=== PATIENT | female | born 1935 | race Caucasian/White ===

== ENCOUNTER 2020-01-16 13:30 | Outpatient (CLI) | payer MEDICARE, OTHER, SELFPAY ==
[2020-01-16 13:58] LABS: Basophils Absolute Auto 0.1 K/mm3 (0.0-0.1); Basophils Percent Auto 0.7 % (0.2-1.2); Eosinophils Absolute Auto 0.2 K/mm3 (0-0.3); Eosinophils Percent Auto 2.4 % (0-4.4); Hemoglobin 10.6 g/dL (12.0-15.0); Immature Granulocyte Absolute 0.03 K/mm3 (0.00-0.031); Immature Granulocyte Percent A 0.3 % (0-0.5); Lymphocytes Absolute Auto 0.93 K/mm3 (0.9-3.2); Lymphocytes Percent Auto 10.8 % (18.3-44.2); Mean Corpuscular HGB Conc 30.3 g/dl (32-36); Mean Corpuscular Hemoglobin 32.6 pg (26-34); Mean Corpuscular Volume 107.7 fl (80-100); Monocytes Absolute Auto 0.9 K/mm3 (0.1-0.6); Monocytes Percent Auto 10.8 % (2.6-8.5); Neutrophils Absolute Auto 6.5 K/mm3 (1.3-6.7); Platelet Count Result 243 k/mm3 (150-375); Red Blood Count 3.25 M/mm3 (4.2-5.4); Red Cell Distribution Width 12.9 % (11.5-14.5); White Blood Count 8.6 K/mm3 (4.5-10.0)
[2020-01-16 14:02] LABS: Blood Urea Nitrogen 16 mg/dL (8-26); Carbon Dioxide 31 mmol/L (22-30); Chloride 101 mmol/L (98-109); Estimated Glomerular Filt Rate 39; Glucose 130 mg/dL (70-105); Potassium 3.9 mmol/L (3.5-4.9); Sodium 144 mmol/L (138-146)
[2020-01-16 17:43] LABS: Iron 159 ug/dL (37-170)
[2020-01-16 17:52] LABS: Percent Iron Saturation 54 % (20-50)
[2020-01-16 18:52] LABS: Folic Acid > 20.0 ng/mL (2.76->20)
== END 2020-01-16 13:31 | disposition home or self-care (01) ==
PROVIDERS: PCP Family Medicine; Visit Provider Internal Medicine Hematology & Oncology
DX: D50.9 Iron deficiency anemia, unspecified (principal)
CPT/HCPCS: 36415; 80048; 82607; 82728; 82746; 83540; 83550; 85025

== ENCOUNTER 2020-03-26 10:34 | Observation (INO) | payer MEDICARE, OTHER, SELFPAY ==
[2020-03-26] VITALS (7 sets, daily range): BP systolic 120–174; BP diastolic 49–105; PULSE 82–88; RESP 15–22; TEMP 36.3; O2SAT 95–100; BMI 20.7
--- NOTE | ~2020-03-26 | XR_ITS ---
EXAMINATION: XR chest 1V portable DATE: 03/26/2020 11:20 INDICATION: Cough. TECHNIQUE: A single frontal view of the chest was obtained. COMPARISON: Chest single view 01/11/2018, CT abdomen and pelvis 10/12/2017, chest CT 12/25/2012 FINDINGS: The patient is rotated to her right. There are lucencies in the lungs, consistent with emph ysema. Calcified right lung nodules and calcified right hilar and mediastinal lymph nodes are consist ent with old granulomatous disease. No pleural effusion or pneumothorax. The heart size is normal. IMPRESSION: 1. Emphysema. Reviewed, dictated and finalized at location B. IMPRESSION: 1. Emphysema.
--- NOTE | 2020-03-26 11:10 | PC.NURSE ---
clarence tech unable to draw labs x 2 tech x 2 attempts
--- NOTE | 2020-03-26 11:12 | PC.NURSE ---
portable xray at bedside.
[2020-03-26 11:35] LABS: Basophils Absolute Auto 0.1 K/mm3 (0.0-0.1); Basophils Percent Auto 0.7 % (0.2-1.2); Eosinophils Absolute Auto 0.2 K/mm3 (0-0.3); Eosinophils Percent Auto 2.6 % (0-4.4); Hematocrit 38.1 % (37.0-47.0); Hemoglobin 11.7 g/dL (12.0-15.0); Immature Granulocyte Absolute 0.01 K/mm3 (0.00-0.031); Immature Granulocyte Percent A 0.1 % (0-0.5); Lymphocytes Absolute Auto 0.89 K/mm3 (0.9-3.2); Lymphocytes Percent Auto 11.7 % (18.3-44.2); Mean Corpuscular HGB Conc 30.7 g/dl (32-36); Mean Corpuscular Hemoglobin 31.8 pg (26-34); Mean Corpuscular Volume 103.5 fl (80-100); Monocytes Absolute Auto 0.6 K/mm3 (0.1-0.6); Neutrophils Absolute Auto 5.8 K/mm3 (1.3-6.7); Neutrophils Percent Auto 76.9 % (45.5-73.1); Platelet Count Result 241 k/mm3 (150-375); Red Blood Count 3.68 M/mm3 (4.2-5.4); Red Cell Distribution Width 12.9 % (11.5-14.5); White Blood Count 7.6 K/mm3 (4.5-10.0)
[2020-03-26 11:43] LABS: INR 0.9; Partial Thromboplastin Time 27.5 SECONDS (22.3-36.8)
[2020-03-26 11:46] LABS: Alanine Aminotransferase 13 U/L (4-35); Albumin Level 4.7 g/dL (3.5-5.1); Alkaline Phosphatase 93 U/L (38-126); Anion Gap 7 mmol/L (8-16); Aspartate Amino Transferase 31 U/L (14-36); Bilirubin,Total 0.2 mg/dL (0.2-1.3); Blood Urea Nitrogen 22 mg/dL (7-17); Calcium 10.1 mg/dL (8.4-10.2); Carbon Dioxide 35 mmol/L (22-30); Chloride 100 mmol/L (98-107); Estimated CRCL calculation 24 ml/min; Estimated Glomerular Filt Rate 47; Glucose 193 mg/dL (65-105); Potassium 4.5 mmol/L (3.4-5.0); Sodium 142 mmol/L (137-145)
--- NOTE | 2020-03-26 12:29 | ED.GENADULT ---
HPI - General Adult General Chief complaint: Unspecified Stated complaint: UNABLE TO SWALLOW Time Seen by Provider: 03/26/20 10:36 Source: RN notes reviewed History of Present Illness HPI narrative: Patient presents emergency department via EMS for dysphasia. History is per the patient as well as discussion with Dr. Almaraz. The patient has been having difficulty eating solid foods. She states they will go down and immediately come back up. States this is progressively been worse over the past several weeks. States she is able to tolerate liquids. She denies any fevers or chills chest pain shortness of breath abdominal pain nausea vomiting or any other symptoms. Per Dr. Rufina Miner patient has been having episodes of choking when she eats and feels that she needs further evaluation Related Data Home Medications Medication Instructions Recorded Confirmed Lactobacillus acidophilus 2,000 mmu cells PO BID 07/02/19 acetaminophen 650 mg 650 mg PO Q8H 07/02/19 tablet,extended release carboxymethylcellulose sodium 1 drop EACH EYE QID 07/02/19 clopidogrel 75 mg tablet 75 mg PO DAILY 07/02/19 ferrous sulfate 325 mg (65 mg 325 mg PO BID 07/02/19 iron) tablet lidocaine 4 % topical patch 1 patch TOPICAL Q24H PRN 07/02/19 lidocaine 5 % topical patch 1 patch TOPICAL DAILY 07/02/19 vexcoslx-mce-ttqez ac 400 tablet PO 07/02/19 mcg-calcium carb 500 mg-vit K1 20 mcg tablet Allergies Allergy/AdvReac Type Severity Reaction Status Date / Time neomycin Allergy Mild ITCHING/ Verified 03/26/20 10:44 SWELLING duloxetine Allergy Unknown shortness Verified 03/26/20 10:44 of breath Review of Systems Review of Systems: Narrative: Gen.: Denies fevers or chills ENT: Denies congestion Respiratory: Denies shortness of breath or cough CV: Denies chest pain or palpitations GI: Denies abdominal pain nausea, emesis or diarrhea reports dysphasia Musculoskeletal: Denies back pain or muscle pain Neuro: Denies numbness, tingling, weakness or focal weakness Skin: Denies rash Except as documented, all other systems reviewed and negative PMF Past Medical History Medical History AAA (abdominal aortic aneurysm) Abnormality of gait Arthritis BP (high blood pressure) CAD (coronary artery disease) Chronic respiratory failure Chronic ulcer of ankle, right, limited to breakdown of skin COPD (chronic obstructive pulmonary disease) Debility JONATHAN (generalized anxiety disorder) Gastric ulcer with hemorrhage GERD with esophagitis Hx of transfusion Hypothyroidism (acquired) Oxygen dependent PAD (peripheral artery disease) Uses walker Surgical History Surgical History (Updated 07/02/19 @ 21:03 by Rufina Miner MD) S/P insertion of iliac artery stent Family History Family History (Updated 11/19/16 @ 23:56 by DOCTOR UNKNOWN) Father Family history of transient ischemic attacks, Onset Age: 74 Patient's father is Mother Acute myocardial infarction, Onset Age: 72 Patient's mother is Social History Social History Smoking status: Light tobacco smoker Second hand tobacco smoke exposure: No Smoking end date: 08/15/16 Alcohol intake: never Substance use: never Substance use type: does not use Gender identity (if verbalized by the patient): Female Exam Narrative: Exam Narrative: APPEARANCE: No acute distress, nontoxic, resting in bed EYES: EOMI HEENT: Normocephalic, atraumatic, OMM RESPIRATORY: No respiratory distress Clear to auscultation bilaterally with no rhonchi wheezing or rales. CARDIOVASCULAR: Regular rate and rhythm without murmurs rubs or gallops. ABDOMINAL: Soft, nontender, nondistended, no rebound or guarding MUSCULOSKELETAl: Moves all extremities. NEURO: Awake and alert. Following commands, speech normal, no focal deficits SK
--- NOTE | 2020-03-26 13:13 | PC.NURSE ---
Cuauhtemoc Davila updated to pt being admitted at this [facility].
--- NOTE | 2020-03-26 14:43 | ADMGEN ---
This patient, Eloina Green, was admitted to 3 Med Surg Room 323-01 @ 1443. Patient/family oriented to hospital policies and general routines including ID bracelet, bed and alarms, visiting hours, pain management, procedures, bathroom and other care routines, personal items, smoking policy, room service/diet, and visiting hours. Valuables list has been completed. Information on how to activate the Rapid Response Team has been discussed. Patient/Family are encouraged to report perceived risks to care and to ask questions if they do not understand what they are told or what they should do.
[2020-03-26] MEDS: SODIUM CHLORIDE 0.9% IV 1,000 ML 100 ML IV CONT (15:15)
--- NOTE | 2020-03-26 21:00 | PM.IMHP ---
H&P: HPI History of Present Illness Date/Time: 03/26/20 21:00 Chief complaint: Dysphagia. Narrative: Eloina Green is an 85-year-old female with history of gastric ulcer, GERD, diabetes, heart disease, dementia, and several other comorbidities who presented to the emergency department earlier today via EMS from [place] for evaluation of dysphagia. For quite some time she has had difficulties swallowing, mainly solid food, and she is cognizant about taking small bites and chewing for quite some time before swallowing. Her dysphagia has gotten worse over the past several weeks to the point where she is coughing and choking when eating and in fact she is not able to hold down any solids, and tends to regurgitate them shortly after swallowing. Apparently she has not had any problems with liquids, however. The only complaint she has at the time my evaluation is of having to urinate frequently as she is on IV fluids. She denies abdominal pain, epigastric pain, and current nausea. No shortness of breath or concerns for aspiration. Review of Systems Review of Systems: Narrative: Twelve systems were reviewed with pertinent positives and negatives as per HPI. She denies fever, chills, and sweats. No recent cold or flu symptoms. She denies cough and shortness of breath. No dysuria, hematuria, or urinary incontinence. Except as documented, all other systems were reviewed and are negative. [facility] Past Medical History Medical History (Updated 03/27/20 @ 02:05 by Ana Dumont PA-C) Acquired hypothyroidism Status post radioactive iodine ablation for hyperthyroidism. Anemia With history of blood transfusion. Aneurysm of infrarenal abdominal aorta Fusiform infrarenal a measuring 3.2 x 3.1 centimeters on imaging from September 2017. Arthritis Carotid artery disease Status post right carotid endarterectomy. Chronic obstructive pulmonary disease Chronic respiratory failure with hypoxia, on home oxygen therapy Coronary artery disease With history of stent in February 2005. Dementia Depression with anxiety Diastolic congestive heart failure Echocardiogram in December 2017 showed grade 1 diastolic dysfunction with ejection fraction of 65 to 70%. Essential hypertension Gastric ulcer with hemorrhage (~03/2019) Gastroesophageal reflux Hyperlipidemia Hyperthyroidism Status post radioactive iodine ablation. Moderate aortic stenosis On echocardiogram in December 2017. Peripheral arterial disease Rhabdomyolysis (~09/2018) Requiring hospitalization after a fall. Shingles Type 2 diabetes mellitus Diet controlled, with a hemoglobin A1c of 5.1% on 03/25/2019. Surgical History Surgical History (Updated 03/27/20 @ 01:54 by Ana Dumont PA-C) History of bilateral cataract extraction History of right-sided carotid endarterectomy (~02/2016) History of spinal surgery (~08/2004) Status post insertion of iliac artery stent Family History Family History Father Family history of transient ischemic attacks, Onset Age: 74 Patient's father is Mother Acute myocardial infarction, Onset Age: 72 Patient's mother is Social History Social History (Updated 03/27/20 @ 01:56 by Ana Dumont PA-C) Social History: The patient is and lives in [facility] at [place]. She has no children. She started smoking at the age of 16, about a pack per day, but in her later years she has only smoked diffuse cigarettes a day. She drinks alcohol rarely, and occasionally will have believes with her coffee. No illicit substance use. She ambulates with a walker. She is listed as a full code. Spiritual care concerns: No Meds Home Medications and Allergies Home Medications Medication Instructions Recorded Confirmed Type Lactobacillus acidophilus 2,000 mmu cells PO BID 07/02/19 03/26/20 History clopidogrel 75 mg tablet 75 mg PO DAILY
[2020-03-27] VITALS (9 sets, daily range): BP systolic 134–154; BP diastolic 45–65; PULSE 76–88; RESP 16–22; TEMP 36.4–37; O2SAT 95–100
--- NOTE | 2020-03-27 09:28 | WPDGICN ---
Assessment and Plan Assessment and plan (1) Dysphagia: Code(s): R13.10 - Dysphagia, unspecified Status: Acute Assessment and Plan: patient has difficulty swallowing solid foods. This appears to hang up in the mid chest. Plan is for EGD to assess more thoroughly. Patient is known to have acid reflux. She had a gastric ulcer 1 year ago that will be reassessed at time of endoscopy. Patient should be maintained on anti reflux measures proton pump inhibitor for the immediate future. Further recommendations after endoscopy. (2) Gastroesophageal reflux: Code(s): K21.9 - Gastro-esophageal reflux disease without esophagitis Status: Acute (3) Dementia: Code(s): F03.90 - Unspecified dementia without behavioral disturbance Status: Acute GI Consult Note Consult date/time: 03/27/20 09:28 HPI: Eloina Green is a 85 year old female seen in evaluation at the request of the hospitalist service. Patient has underlying history of dementia. Currently resident of [facility]. Recently had increasing difficulty swallowing for this reason I have been consulted. Patient states that solid food will catch in the mid substernal portion of the chest. Patient is known to my service for evaluation 1 year ago which time she had a gastric ulcer. Patient also has been treated for GE reflux disease. She has past medical history of congestive heart failure, hypertension, GE reflux, hyperlipidemia, hyperthyroidism, COPD. Review of Systems Review of Systems: All systems reviewed & are unremarkable except as noted in HPI and below PMFSH Past Medical History Medical History Acquired hypothyroidism Status post radioactive iodine ablation for hyperthyroidism. Anemia With history of blood transfusion. Aneurysm of infrarenal abdominal aorta Fusiform infrarenal a measuring 3.2 x 3.1 centimeters on imaging from September 2017. Arthritis Carotid artery disease Status post right carotid endarterectomy. Chronic obstructive pulmonary disease Chronic respiratory failure with hypoxia, on home oxygen therapy Coronary artery disease With history of stent in February 2005. Dementia Depression with anxiety Diastolic congestive heart failure Echocardiogram in December 2017 showed grade 1 diastolic dysfunction with ejection fraction of 65 to 70%. Essential hypertension Gastric ulcer with hemorrhage (~03/2019) Gastroesophageal reflux Hyperlipidemia Hyperthyroidism Status post radioactive iodine ablation. Moderate aortic stenosis On echocardiogram in December 2017. Peripheral arterial disease Rhabdomyolysis (~09/2018) Requiring hospitalization after a fall. Shingles Type 2 diabetes mellitus Diet controlled, with a hemoglobin A1c of 5.1% on 03/25/2019. Surgical History Surgical History History of bilateral cataract extraction History of right-sided carotid endarterectomy (~02/2016) History of spinal surgery (~08/2004) Status post insertion of iliac artery stent Family History Family History Father Family history of transient ischemic attacks, Onset Age: 74 Patient's father is Mother Acute myocardial infarction, Onset Age: 72 Patient's mother is Social History Social History Social History: The patient is and lives in memory care at [place]. She has no children. She started smoking at the age of 16, about a pack per day, but in her later years she has only smoked diffuse cigarettes a day. She drinks alcohol rarely, and occasionally will have believes with her coffee. No illicit substance use. She ambulates with a walker. She is listed as a full code. Spiritual care concerns: No Meds Home Medications and Allergies Home Medications Medi
--- NOTE | 2020-03-27 10:21 | PC.NURSE ---
pt leaving to go to gi lab at 1024
[2020-03-27 10:43] LABS: Glucose Point of Care 117 (65-105)
--- NOTE | 2020-03-27 10:44 | WPDANESEPPF ---
Anes - Initial Pre Proc Eval Procedure: Operation Date: 03/27/20 11:00 Proposed Procedures p Esophagogastroduodenoscopy - Haseeb Aragon MD Date/Time: 03/27/20 10:44 Surgeon: Hayden Villalta MD Pre Op Diagnosis: Dysphagia. Patient Data Age: 85 Gender: F Height: 5 ft 2 in Weight: 51.4 kg Last Vital Signs Temp 36.8 C 03/27/20 10:43 Pulse 87 03/27/20 10:43 Resp 22 H 03/27/20 10:43 BP 151/65 H 03/27/20 10:43 Pulse Ox 100 03/27/20 10:43 Allergies Allergy/AdvReac Type Severity Reaction Status Date / Time neomycin Allergy Mild ITCHING/ Verified 03/27/20 10:41 SWELLING duloxetine Allergy Unknown shortness Verified 03/27/20 10:41 of breath Home Medications Medication Instructions Recorded Confirmed Type Lactobacillus acidophilus 2,000 mmu cells PO BID 07/02/19 03/26/20 History clopidogrel 75 mg tablet 75 mg PO DAILY 07/02/19 03/26/20 History ferrous sulfate 325 mg (65 mg 325 mg PO BID 07/02/19 03/26/20 History iron) tablet lidocaine 5 % topical patch 1 patch TOPICAL DAILY 07/02/19 03/26/20 History xeyrdkxw-tgf-dqlpi ac 400 1 tablet PO DAILY 07/02/19 03/26/20 History mcg-calcium carb 500 mg-vit K1 20 mcg tablet diazepam 5 mg tablet 5 mg PO TID #90 tablet 10/09/19 03/26/20 Rx quetiapine 50 mg tablet,extended 100 mg PO QPM #180 tablet 10/09/19 03/26/20 Rx release 24 hr ascorbic acid (vitamin C) 1,000 mg 1 gm PO DAILY #90 tablet 11/08/19 03/26/20 Rx tablet celecoxib 200 mg capsule 200 mg PO DAILY #90 cap 11/08/19 03/26/20 Rx levothyroxine 88 mcg tablet 88 mcg PO DAILY #90 tablet 11/08/19 03/26/20 Rx amlodipine 5 mg tablet 5 mg PO DAILY #90 tablet 11/13/19 03/26/20 Rx meclizine 25 mg tablet 25 mg PO TID PRN #90 tablet 11/13/19 03/26/20 Rx memantine ER 28 mg-donepezil 10 mg 1 cap PO DAILY #90 each 11/13/19 03/26/20 Rx capsule sprinkle,ext.release 24 hr melatonin 10 mg capsule 10 mg PO .qhs #90 cap 11/16/19 03/26/20 Rx tramadol 50 mg tablet 50 mg PO Q6H PRN #120 tablet 12/26/19 03/26/20 Rx simvastatin 40 mg tablet 40 mg PO DAILY #90 tablet 01/15/20 03/26/20 Rx aspirin 81 mg tablet,delayed 81 mg PO DAILY #90 tablet 02/06/20 03/26/20 Rx release cetirizine 10 mg tablet 10 mg PO DAILY #90 tablet 02/06/20 03/26/20 Rx pantoprazole 40 mg tablet,delayed 40 mg PO QAM #90 tablet 02/07/20 03/26/20 Rx release calcium carbonate 500 mg (1,250 1 tablet PO DAILY #90 tablet 03/06/20 03/26/20 Rx mg)-vitamin D3 400 unit tablet azelastine 137 mcg INTRANASAL Q12H 03/26/20 03/26/20 History carboxymethylcellulose sodium 1 drp OPHTHALMIC (EYE) QID 03/26/20 03/26/20 History [Refresh Tears] fluticasone propionate 1 spray INTRANASAL BID 03/26/20 03/26/20 History prednisolone acetate 1 drp LEFTEYE BID 03/26/20 03/26/20 History Laboratory Tests 03/26/20 03/26/20 03/26/20 11:26 11:26 11:26 WBC 7.6 K/mm3 K/mm3 (4.5-10.0) RBC 3.68 M/mm3 L M/mm3 (4.2-5.4) Hgb 11.7 g/dL L g/dL (12.0-15.0) Hct 38.1 % % (37.0-47.0) MCV 103.5 fl H fl (80-100) MCH 31.8 pg pg (26-34) MCHC 30.7 g/dl L g/dl (32-36) RDW 12.9 % % (11.5-14.5) Plt Count 241 k/mm3 k/mm3 (150-375) MPV 9.0 fl fl (7.4-10.4) Immature Gran % (Auto) 0.1 % % (0-0.5) Neut % (Auto) 76.9 % H % (45.5-73.1) Lymph % (Auto) 11.7 % L % (18.3-44.2) [place] % (Auto) 8.0 % % (2.6-8.5) Eos % (Auto) 2.6 % % (0-4.4) Baso % (Auto) 0.7 % % (0.2-1.2) Lymph # (Auto) 0.89 K/mm3 L K/mm3 (0.9-3.2) [place] # (Auto) 0.6 K/mm3 K/mm3 (0.1-0.6) Eos # (Auto) 0.2 K/mm3 K/mm3 (0-0.3) Baso # (Auto) 0.1 K/mm3 K/mm3 (0.0-0.1) Abs Immat Gran (auto) 0.01 K/mm3 K/mm3 (0.00-0.031) Absolute Neuts (auto) 5.8 K/mm3 K/mm3 (1.3-6.7) Absolute Nucleated RBC 0.0 K/mm3 K/mm3 (0.0-0.012) Nucleated RBC % 0.0 % %
[2020-03-27] MEDS: LACTATED RINGERS 1,000 ML 150 ML IV CONT (10:46)
[2020-03-27] MEDS: BENZOCAINE (*SP) 60 ML SPRAY CAN (HURRICAINE) 1 SPRAY MUCOUS MEM (11:24)
[2020-03-27] MEDS: LEVOTHYROXINE SODIUM 88 MCG TABLET PO (12:59)
[2020-03-27] MEDS: amLODIPine BESYLATE 5 MG TABLET PO (13:01)
[2020-03-27] MEDS: DONEPEZIL HCL 10 MG TABLET PO (13:02)
[2020-03-27] MEDS: FERROUS SULFATE 324 MG TABLET PO (13:02)
[2020-03-27] MEDS: FLUTICASONE PROPIONATE 0.05% NA SPR 16 GM BTL (*BKC) 1 SPRAY NASAL (13:03)
[2020-03-27] MEDS: LORATADINE 10 MG TABLET PO (13:04)
[2020-03-27] MEDS: LIDOCAINE 5% PATCH 1 PATCH TOPICAL (13:04)
[2020-03-27] MEDS: PANTOPRAZOLE 40 MG TABLET PO (13:06)
[2020-03-27] MEDS: MEMANTINE HCL XR 28 MG CAP PO (13:09)
[2020-03-27] MEDS: SIMVASTATIN 20 MG TABLET 40 MG PO (13:09)
[2020-03-27] MEDS: diazePAM 5 MG TABLET PO (13:10)
[2020-03-27] MEDS: ACIDOPHILUS/BULGARICUS CHEWABLE TABLET 1 TABLET PO (13:11)
--- NOTE | 2020-03-27 16:03 | PC.NURSE ---
pt returned from gi lab, a/o x2,asking for her morning meds.francesca returned to pt from [facility].
--- NOTE | 2020-03-27 16:34 | P.DS_ITS ---
DS: Admitting Diagnosis Admitting Diagnosis Admitting Diagnosis: Dysphagia. DS: Discharge Diagnosis Discharge Diagnosis (1) Dysphagia: Code(s): R13.10 - Dysphagia, unspecified Status: Acute Assessment and Plan: * NPO after midnight for probable EGD in a.m. * EGD is NL (2) Mild dehydration: Code(s): E86.0 - Dehydration Status: Resolved Assessment and Plan: * She will receive IV fluid rehydration overnight. (3) Anemia: Code(s): D64.9 - Anemia, unspecified Status: Acute Assessment and Plan: * Hemoglobin and hematocrit are stable on review of previous labs. * Resume iron supplementation post EGD. (4) Essential hypertension: Code(s): I10 - Essential (primary) hypertension Status: Acute Assessment and Plan: * Continue antihypertensive monitor closely. (5) Gastroesophageal reflux: Code(s): K21.9 - Gastro-esophageal reflux disease without esophagitis Status: Acute Assessment and Plan: * Continue pantoprazole. (6) Chronic obstructive pulmonary disease: Code(s): J44.9 - Chronic obstructive pulmonary disease, unspecified Status: Acute Assessment and Plan: * No acute issues, she is at her baseline oxygen requirement. (7) Chronic respiratory failure with hypoxia, on home oxygen therapy: Code(s): J96.11 - Chronic respiratory failure with hypoxia; Z99.81 - Dependence on supplemental oxygen Status: Acute Assessment and Plan: * She is on her baseline oxygen requirement. (8) Dementia: Code(s): F03.90 - Unspecified dementia without behavioral disturbance Status: Acute Assessment and Plan: * Continue quetiapine, memantine, and diazepam. * Pt lives in a memory center. (9) Acquired hypothyroidism: Code(s): E03.9 - Hypothyroidism, unspecified Status: Acute Assessment and Plan: * Continue levothyroxine. (10) Peripheral arterial disease: Code(s): I73.9 - Peripheral vascular disease, unspecified Status: Acute Assessment and Plan: * Aspirin and clopidogrel on hold in anticipation of EGD. DS: Summary Time Spent with Patient Time attestation: Total time spent providing and/or coordinating discharge services:40 minutes on the day of discharge Exam Const: General: well developed HENMT: Head: normocephalic Eyes: General: appearance normal, both eyes and all related structures Pupils: Equal, round and reactive pupils present Neck: Neck: supple Chest: Chest palpation & inspection: normal inspection of the chest Resp: Effort & Inspection: normal respiratory effort Auscultation: clear to auscultation bilaterally Cardio: Jugular venous distension: no JVD Rhythm: regular rhythm Heart sounds: S1 normal heart sound present and S2 normal heart sound present GI:
--- NOTE | 2020-03-27 16:34 | PM.DS ---
DS: Admitting Diagnosis Admitting Diagnosis Admitting Diagnosis: Dysphagia. DS: Discharge Diagnosis Discharge Diagnosis (1) Dysphagia: Code(s): R13.10 - Dysphagia, unspecified Status: Acute Assessment and Plan: NPO after midnight for probable EGD in a.m. EGD is NL (2) Mild dehydration: Code(s): E86.0 - Dehydration Status: Resolved Assessment and Plan: She will receive IV fluid rehydration overnight. (3) Anemia: Code(s): D64.9 - Anemia, unspecified Status: Acute Assessment and Plan: Hemoglobin and hematocrit are stable on review of previous labs. Resume iron supplementation post EGD. (4) Essential hypertension: Code(s): I10 - Essential (primary) hypertension Status: Acute Assessment and Plan: Continue antihypertensive monitor closely. (5) Gastroesophageal reflux: Code(s): K21.9 - Gastro-esophageal reflux disease without esophagitis Status: Acute Assessment and Plan: Continue pantoprazole. (6) Chronic obstructive pulmonary disease: Code(s): J44.9 - Chronic obstructive pulmonary disease, unspecified Status: Acute Assessment and Plan: No acute issues, she is at her baseline oxygen requirement. (7) Chronic respiratory failure with hypoxia, on home oxygen therapy: Code(s): J96.11 - Chronic respiratory failure with hypoxia; Z99.81 - Dependence on supplemental oxygen Status: Acute Assessment and Plan: She is on her baseline oxygen requirement. (8) Dementia: Code(s): F03.90 - Unspecified dementia without behavioral disturbance Status: Acute Assessment and Plan: Continue quetiapine, memantine, and diazepam. Pt lives in a memory center. (9) Acquired hypothyroidism: Code(s): E03.9 - Hypothyroidism, unspecified Status: Acute Assessment and Plan: Continue levothyroxine. (10) Peripheral arterial disease: Code(s): I73.9 - Peripheral vascular disease, unspecified Status: Acute Assessment and Plan: Aspirin and clopidogrel on hold in anticipation of EGD. DS: Summary Time Spent with Patient Time attestation: Total time spent providing and/or coordinating discharge services:40 minutes on the day of discharge Exam Const: General: well developed HENMT: Head: normocephalic Eyes: General: appearance normal, both eyes and all related structures Pupils: Equal, round and reactive pupils present Neck: Neck: supple Chest: Chest palpation & inspection: normal inspection of the chest Resp: Effort & Inspection: normal respiratory effort Auscultation: clear to auscultation bilaterally Cardio: Jugular venous distension: no JVD Rhythm: regular rhythm Heart sounds: S1 normal heart sound present and S2 normal heart sound present GI: Inspection: normal to inspection GI Palp: No abdominal tenderness, Yes Soft to palpation and No Tenderness to palpation present (GI) Auscultation: normal bowel sounds : General: Yes no CVA tenderness Back/Spine/Pelvis: Back: no CVA tenderness Skin: General skin exam: normal color and dry skin Neuro: Cranial nerves: Yes CN's II-XII intact bilaterally and Yes Equal, round and reactive pupils present Cognition (Neuro): abnormal cognition (pleasantly confused ) Speech: normal speech Motor exam (neuro): 5/5 motor strength present throughout Extrem: Gener
== END 2020-03-27 18:15 ==
LOC: ANHED 12:31 → ANH3MEDSUR 15:26
PROVIDERS: Internal Medicine Gastroenterology; Admitting Provider Internal Medicine; Emergency Provider Emergency Medicine; PCP Family Medicine; Visit Provider Family Medicine
PROC: 0DJ08ZZ Inspection of Upper Intestinal Tract, Via Natural or Artificial Opening Endoscopic (ICD-10-PCS; CPT 43235; principal; 2020-03-27 11:00)
DX: R13.10 Dysphagia, unspecified (principal); D64.9 Anemia, unspecified; I11.0 Hypertensive heart disease with heart failure; I50.30 Unspecified diastolic (congestive) heart failure; K21.9 Gastro-esophageal reflux disease without esophagitis; E03.9 Hypothyroidism, unspecified; E11.9 Type 2 diabetes mellitus without complications; F03.90 Unspecified dementia, unspecified severity, without behavioral disturbance, psychotic disturbance, mood disturbance, and anxiety; I73.9 Peripheral vascular disease, unspecified; J44.9 Chronic obstructive pulmonary disease, unspecified; J96.11 Chronic respiratory failure with hypoxia; Z87.891 Personal history of nicotine dependence; Z99.81 Dependence on supplemental oxygen
CPT/HCPCS: 43450; 36415; 71045; 80053; 85025; 85610; 85730; 99285; A9270; G0378; J2704; J7030; J7120

== ENCOUNTER 2020-04-11 12:30 | Emergency (ER) | payer MEDICARE, OTHER, SELFPAY ==
[2020-04-11 12:36] VITALS: BP 121/52; PULSE 73; RESP 18; TEMP 36.2; O2SAT 97
--- NOTE | 2020-04-11 14:15 | PC.NURSE ---
Patient attempted to go outside, oxygen tank hit floor. Patient states take me outside I wanna smoke. Advised patient that is not an option with oxygen. Patient then states take me off my tank and just push me the fuck outside. Patient proceeded to push self outside in wheelchair and smoke a cigarette. supervisory historian notified.
--- NOTE | 2020-04-11 14:29 | ED.GENADULT ---
HPI - General Adult General Chief complaint: Unspecified Stated complaint: difficulty swallowing at mealtime Time Seen by Provider: 04/11/20 14:28 History of Present Illness HPI narrative: Difficulty swallowing solids for the past few weeks. Not every time she eats. She has not noticed this problem with any particular type of food. She felt that she had something stuck today, but that has since resolved. She was told by her PCP that she needed to come here to get her esophagus stretched . Related Data Home Medications Medication Instructions Recorded Confirmed Lactobacillus acidophilus 2,000 mmu cells PO BID 07/02/19 03/26/20 clopidogrel 75 mg tablet 75 mg PO DAILY 07/02/19 03/26/20 lidocaine 5 % topical patch 1 patch TOPICAL DAILY 07/02/19 03/26/20 fuzdzltd-ipd-[id number] ac 400 1 tablet PO DAILY 07/02/19 03/26/20 mcg-calcium carb 500 mg-vit K1 20 mcg tablet Refresh Tears 1 drp OPHTHALMIC (EYE) QID 03/26/20 03/26/20 azelastine 137 mcg INTRANASAL Q12H 03/26/20 03/26/20 fluticasone propionate 1 spray INTRANASAL BID 03/26/20 03/26/20 prednisolone acetate 1 drp LEFTEYE BID 03/26/20 03/26/20 Allergies Allergy/AdvReac Type Severity Reaction Status Date / Time neomycin Allergy Mild ITCHING/ Verified 03/27/20 10:41 SWELLING duloxetine Allergy Unknown shortness Verified 03/27/20 10:41 of breath Review of Systems Constitutional: Constitutional: Denies fever(s) ENT: Denies sore throat Cardiovascular: Cardiovascular: Denies chest pain Respiratory: Respiratory: Reports dyspnea Gastrointestinal: Gastrointestinal: Denies abdominal pain [facility] Past Medical History Medical History Acquired hypothyroidism Status post radioactive iodine ablation for hyperthyroidism. Anemia With history of blood transfusion. Aneurysm of infrarenal abdominal aorta Fusiform infrarenal a measuring 3.2 x 3.1 centimeters on imaging from September 2017. Arthritis Carotid artery disease Status post right carotid endarterectomy. Chronic obstructive pulmonary disease Chronic respiratory failure with hypoxia, on home oxygen therapy Coronary artery disease With history of stent in February 2005. Dementia Depression with anxiety Diastolic congestive heart failure Echocardiogram in December 2017 showed grade 1 diastolic dysfunction with ejection fraction of 65 to 70%. Essential hypertension Gastric ulcer with hemorrhage (~03/2019) Gastroesophageal reflux Hyperlipidemia Hyperthyroidism Status post radioactive iodine ablation. Moderate aortic stenosis On echocardiogram in December 2017. Peripheral arterial disease Rhabdomyolysis (~09/2018) Requiring hospitalization after a fall. Shingles Type 2 diabetes mellitus Diet controlled, with a hemoglobin A1c of 5.1% on 03/25/2019. Surgical History Surgical History History of bilateral cataract extraction History of right-sided carotid endarterectomy (~02/2016) History of spinal surgery (~08/2004) Status post insertion of iliac artery stent Family History Family History Father Family history of transient ischemic attacks, Onset Age: 74 Patient's father is Mother Acute myocardial infarction, Onset Age: 72 Patient's mother is Social History Social History Social History: The patient is and lives in memory care at [place]. She has no children. She started smoking at the age of 16, about a pack per day, but in her later years she has only smoked diffuse cigarettes a day. She drinks alcohol rarely, and occasionally will have believes with her coffee. No illicit substance use. She ambulates with a walker. She is listed as a full code. Gender identity (if verbalized by the patient): Female Spiritual care concerns: No
--- NOTE | 2020-04-11 14:30 | PC.NURSE ---
Patient taken to room 16 at this time, patient continue to yell and curse at this nurse. States why am I even here if you aren't going to stretch my esophagus. Advised patient that she needs to see EDP and that will determine if any tests will be done today.
[2020-04-11 14:53] VITALS: RESP 12; O2SAT 99
--- NOTE | 2020-04-11 15:00 | PC.NURSE ---
Addendum entered by Tony Brink RN 04/11/20 16:43: Pt. wheeled themselves outside did not ambulate outside. Pt. does ambulate with assistance to rest room without O2. Original Note: Pt. ambulated out of ED to smoke cigarette for a at least 30mins. Pt. removed their O2. Pt. normally is on O2 but did not bring their home O2 during transport. Pt. was placed on facility O2.
[2020-04-11 16:07] VITALS: BP 139/90; PULSE 86; RESP 12; O2SAT 92
== END 2020-04-11 16:44 ==
PROVIDERS: Emergency Provider Emergency Medicine; PCP Family Medicine
DX: R13.10 Dysphagia, unspecified (principal); E89.0 Postprocedural hypothyroidism; I25.10 Atherosclerotic heart disease of native coronary artery without angina pectoris; J44.9 Chronic obstructive pulmonary disease, unspecified; J96.11 Chronic respiratory failure with hypoxia; Z99.81 Dependence on supplemental oxygen; F03.90 Unspecified dementia, unspecified severity, without behavioral disturbance, psychotic disturbance, mood disturbance, and anxiety; I50.30 Unspecified diastolic (congestive) heart failure; I11.0 Hypertensive heart disease with heart failure; K21.9 Gastro-esophageal reflux disease without esophagitis; E78.5 Hyperlipidemia, unspecified; I73.9 Peripheral vascular disease, unspecified; E11.9 Type 2 diabetes mellitus without complications; Z86.2 Personal history of diseases of the blood and blood-forming organs and certain disorders involving the immune mechanism; F17.210 Nicotine dependence, cigarettes, uncomplicated; Z98.42 Cataract extraction status, left eye; Z98.41 Cataract extraction status, right eye
CPT/HCPCS: 99281

== ENCOUNTER 2020-05-26 12:10 | Emergency (ER) | payer MEDICARE, OTHER, SELFPAY ==
[2020-05-26] VITALS (25 sets, daily range): BP systolic 113–155; BP diastolic 39–54; PULSE 73–90; RESP 15–28; TEMP 35.9; O2SAT 85–100
--- NOTE | ~2020-05-26 | CT_ITS ---
EXAMINATION: CT brain wo con DATE: 05/26/2020 14:42 INDICATION: Altered mental status TECHNIQUE: Computed tomography (CT) of the head was performed without intravenous contrast. Sagittal and coronal reconstructions were performed. The mA was adjusted according to patient size. Iterative reconstruction technique was employed. The dose-length product was 1286.33 mGy-cm. COMPARISON: head CT dated 05/03/2018 FINDINGS: No acute intracranial hemorrhage, acute infarction or abnormal extra axial fluid collection. There is moderate scattered white matter hypoattenuation consistent with chronic small vessel ischemic diseas e. Symmetric prominence of the sulci and ventricles consistent with moderate age-appropriate diffuse cerebral volume loss. No mass/mass effect. Changes of bilateral intraocular lens replacement. The orb its, paranasal sinuses and mastoid air cells are normal. IMPRESSION: 1. No acute intracranial process. 2. Age-related changes including moderate diffuse volume loss and moderate scattered white matter hyp oattenuation consistent with chronic small vessel ischemic disease. Reviewed, dictated and finalized at location B. IMPRESSION: 1. No acute intracranial process. 2. Age-related changes including moderate diffuse volume loss and moderate scat tered white matter hypoattenuation consistent with chronic small vessel ischemi c disease.
--- NOTE | ~2020-05-26 | XR_ITS ---
EXAMINATION: XR chest 2V DATE: 05/26/2020 12:53 INDICATION: Weakness TECHNIQUE: AP and lateral views of the chest are obtained. COMPARISON: 03/26/2020 FINDINGS: The lungs are hyperinflated but free of acute opacities. There is no pleural effusion or pn eumothorax. The cardiomediastinal silhouette is normal. Calcified atherosclerosis is noted. There is moderate thoracic spondylosis. IMPRESSION: 1. No acute cardiopulmonary abnormality. Reviewed, dictated and finalized at location A.
--- NOTE | 2020-05-26 12:14 | ECG_ITS ---
Measurements Intervals [place] Rate: 78 P: 42 IN: 177 QRS: 51 QRSD: 89 T: 73 QT: 394 QTc: 450 Interpretive Statements SINUS RHYTHM CANNOT RULE OUT SEPTAL INFARCT, AGE INDETERMINATE BASELINE ARTIFACT- I, II, III, AVR, AVL, AVF, V4-V5 ABNORMAL ECG Electronically Signed On 05-26-2020 12:29:46 CDT by Bladimir Odell D.O.
[2020-05-26 12:40] LABS: Basophils Absolute Auto 0.1 K/mm3 (0.0-0.1); Basophils Percent Auto 0.8 % (0.2-1.2); Eosinophils Absolute Auto 0.2 K/mm3 (0-0.3); Eosinophils Percent Auto 2.5 % (0-4.4); Hematocrit 35.5 % (37.0-47.0); Hemoglobin 10.8 g/dL (12.0-15.0); Immature Granulocyte Absolute 0.02 K/mm3 (0.00-0.031); Immature Granulocyte Percent A 0.3 % (0-0.5); Lymphocytes Absolute Auto 0.97 K/mm3 (0.9-3.2); Lymphocytes Percent Auto 13.7 % (18.3-44.2); Mean Corpuscular HGB Conc 30.4 g/dl (32-36); Mean Corpuscular Volume 105.3 fl (80-100); Mean Platelet Volume 9.4 fl (7.4-10.4); Monocytes Absolute Auto 0.6 K/mm3 (0.1-0.6); Monocytes Percent Auto 8.6 % (2.6-8.5); Neutrophils Absolute Auto 5.3 K/mm3 (1.3-6.7); Neutrophils Percent Auto 74.1 % (45.5-73.1); Platelet Count Result 207 k/mm3 (150-375); Red Blood Count 3.37 M/mm3 (4.2-5.4); Red Cell Distribution Width 12.2 % (11.5-14.5); White Blood Count 7.1 K/mm3 (4.5-10.0)
[2020-05-26 12:45] LABS: Add Urine Microscopic? YES; Appearance Urine Clear (Clear); Bilirubin Urine Negative (Negative); Blood Urine Negative (Negative); Color Urine Yellow (Yellow); Glucose Urine UA Negative (Negative); Ketones Urine Negative (Negative); Leukocyte Esterase Ur Negative LEU/UL (Negative); Mucus Urine Rare /lpf; Nitrate Urine Negative (Negative); Protein Urine Negative (Negative); RBC Urine 0-2 /hpf (0-2); Specific Grav Ur 1.027 (1.001-1.035); Squamous Epithelial Cell Urine Few /hpf (Few); Urobilinogen Urine Negative mg/dL (<2.0); WBC Urine 0-3 /hpf
[2020-05-26 12:54] LABS: Alanine Aminotransferase 14 U/L (4-35); Albumin Level 3.9 g/dL (3.5-5.1); Alkaline Phosphatase 76 U/L (38-126); Anion Gap 4 mmol/L (8-16); Aspartate Amino Transferase 40 U/L (14-36); Bilirubin,Total 0.4 mg/dL (0.2-1.3); Blood Urea Nitrogen 29 mg/dL (7-17); Carbon Dioxide 36 mmol/L (22-30); Chloride 102 mmol/L (98-107); Estimated CRCL calculation 28 ml/min; Estimated Glomerular Filt Rate 47; Glucose 171 mg/dL (65-105); Potassium 4.5 mmol/L (3.4-5.0); Sodium 142 mmol/L (137-145)
--- NOTE | 2020-05-26 13:08 | ED.GENADULT ---
HPI - General Adult General Chief complaint: Weakness Stated complaint: weakness Source: patient History of Present Illness HPI narrative: Patient is a 85 y/o female brought in by EMS for weakness and altered mental status. Patient reportedly has been less interactive with staff for last 3 days. There is no known alleviating or exacerbating factor. Patient denies any pain, fever, chills, cough, vomiting or diarrhea. She does admit generalized weakness, but denies any focal weakness. Related Data Home Medications Medication Instructions Recorded Confirmed Lactobacillus acidophilus 2,000 mmu cells PO BID 07/02/19 03/26/20 clopidogrel 75 mg tablet 75 mg PO DAILY 07/02/19 03/26/20 lidocaine 5 % topical patch 1 patch TOPICAL DAILY 07/02/19 03/26/20 cchmqmtu-isw-lnmsa ac 400 1 tablet PO DAILY 07/02/19 03/26/20 mcg-calcium carb 500 mg-vit K1 20 mcg tablet Refresh Tears 1 drp OPHTHALMIC (EYE) QID 03/26/20 03/26/20 azelastine 137 mcg INTRANASAL Q12H 03/26/20 03/26/20 fluticasone propionate 1 spray INTRANASAL BID 03/26/20 03/26/20 prednisolone acetate 1 drp LEFTEYE BID 03/26/20 03/26/20 acetaminophen [Mapap 325 mg PO ONCE 05/26/20 (acetaminophen)] acetaminophen-codeine 1 tablet PO BID PRN 05/26/20 honey [MediHoney (honey)] 1 applic TOPICAL BID 05/26/20 naloxone [Narcan] 1 spray INTRANASAL Q2-3M PRN 05/26/20 Allergies Allergy/AdvReac Type Severity Reaction Status Date / Time neomycin Allergy Mild ITCHING/ Verified 03/27/20 10:41 SWELLING duloxetine Allergy Unknown shortness Verified 03/27/20 10:41 of breath Review of Systems Constitutional: Constitutional: Denies chills, Denies fever(s), Denies headache(s) and Reports weakness Eyes: Eyes: Denies blurry vision ENT: Denies headache(s) and Denies neck pain Cardiovascular: Cardiovascular: Denies chest pain and Denies dyspnea Respiratory: Respiratory: Denies cough and Denies dyspnea Gastrointestinal: Gastrointestinal: Denies abdominal pain, Denies diarrhea, Denies nausea and Denies vomiting Genitourinary: Genitourinary: Denies hematuria and Denies dysuria Musculoskeletal: Musculoskeletal: Denies back pain and Denies neck pain Neurologic: Denies headache(s) and Reports weakness PMFSH Past Medical History Medical History (Updated 05/26/20 @ 15:30 by Iqra Magaña MD) Acquired hypothyroidism Status post radioactive iodine ablation for hyperthyroidism. Anemia With history of blood transfusion. Aneurysm of infrarenal abdominal aorta Fusiform infrarenal a measuring 3.2 x 3.1 centimeters on imaging from September 2017. Arthritis Carotid artery disease Status post right carotid endarterectomy. Chronic obstructive pulmonary disease Chronic respiratory failure with hypoxia, on home oxygen therapy Coronary artery disease With history of stent in February 2005. Dementia Depression with anxiety Diastolic congestive heart failure Echocardiogram in December 2017 showed grade 1 diastolic dysfunction with ejection fraction of 65 to 70%. Essential hypertension Gastric ulcer with hemorrhage (~03/2019) Gastroesophageal reflux Hyperlipidemia Hyperthyroidism Status post radioactive iodine ablation. Moderate aortic stenosis On echocardiogram in December 2017. Peripheral arterial disease Rhabdomyolysis (~09/2018) Requiring hospitalization after a fall. Shingles Type 2 diabetes mellitus Diet controlled, with a hemoglobin A1c of 5.1% on 03/25/2019. Surgical History Surgical History History of bilateral cataract extraction History of right-sided carotid endarterectomy (~02/2016) History of spinal surgery (~08/2004) Status post insertion of iliac artery stent Family History Family History Father Family history of transient ischemic attacks, Onset Age: 74 Patient's father is Mother Acute myocardial infarction, Onset Age: 72 Patient
[2020-05-26] MEDS: SODIUM CHLORIDE 0.9% IV 1,000 ML 999 ML IV CONT (13:33)
--- NOTE | 2020-05-26 14:28 | PC.NURSE ---
pt to radiology at this time.
[2020-05-26 14:55] LABS: Alveolar/Arterial O2 Gradient 59.8 mmHg; Fractional Inspired Oxygen 28 %; HCO3 ABG 29.7 mEq/l (22.0-26.0); Oxygen Content ABG 13.7 %vol (16.0-22.0); Oxygen Saturation ABG 93.5 % (95.0-100.0); Oxyhemoglobin 92.5 % THb (90.0-100.0); PCO2 ABG 56.7 mmHg (35.0-45.0); PO2 ABG 72.9 mmHg (80.0-100.0); Total Hemoglobin 10.5 g/dL (12.0-18.0); pH ABG 7.337 (7.350-7.450)
[2020-05-26 14:56] LABS: Device NASAL CANNULA; Site Drawn RIGHT BRACHIAL
--- NOTE | 2020-05-26 16:28 | PC.NURSE ---
report called to morena Mack.
== END 2020-05-26 17:28 ==
PROVIDERS: Emergency Provider Emergency Medicine; PCP Family Medicine
DX: R53.1 Weakness (principal); J44.9 Chronic obstructive pulmonary disease, unspecified; E03.9 Hypothyroidism, unspecified; M19.90 Unspecified osteoarthritis, unspecified site; I25.10 Atherosclerotic heart disease of native coronary artery without angina pectoris; F03.90 Unspecified dementia, unspecified severity, without behavioral disturbance, psychotic disturbance, mood disturbance, and anxiety; K21.9 Gastro-esophageal reflux disease without esophagitis; E78.5 Hyperlipidemia, unspecified; E11.51 Type 2 diabetes mellitus with diabetic peripheral angiopathy without gangrene; I11.0 Hypertensive heart disease with heart failure; I50.30 Unspecified diastolic (congestive) heart failure; J96.11 Chronic respiratory failure with hypoxia; Z99.81 Dependence on supplemental oxygen; Z95.5 Presence of coronary angioplasty implant and graft; Z98.42 Cataract extraction status, left eye; Z98.41 Cataract extraction status, right eye; F17.210 Nicotine dependence, cigarettes, uncomplicated
CPT/HCPCS: 36415; 36600; 51701; 70450; 71046; 80053; 81001; 82805; 85025; 93005; 96360; 96361; 99284; J7030